=== PATIENT | male | born 1955 | race Hispanic/Latino ===

== ENCOUNTER 2019-09-22 09:37 | Observation (INO) | payer BC, OTHER ==
--- OUTSIDE RECORDS SUMMARY | 2019-09-22 10:19 | XMS REPORT | Encounter Summary ---
:1955 Author Care Team Providers Name Role Phone Buddy Zapien MD Internet Marketing Assistant [phone] Reason for Visit lab follow-up Instructions 1. Hemoglobin A1c between 7%-10% indicating borderline diabetic control glipizide 5 mg tablet Tresiba FlexTouch U-100 insulin 100 unit/mL (3 mL) subcutaneous pen 2. Mixed hyperlipidemia omega-3 acid ethyl esters 1 gram capsule 3. Neck pain neck pain: care instructions cyclobenzaprine 10 mg tablet Discussion Note: None recorded. Plan of Care Reminders Provider Appointments None recorded. Lab None recorded. Referral None recorded. Procedures None recorded. Surgeries None recorded. Imaging None recorded. Medications Name Start Date acetaminophen 300 mg-codeine 30 mg tablet Take 1 tablet twice a day by oral route for 30 days. cyclobenzaprine 10 mg tablet Take 1 tablet 3 times a day by oral route as needed. duloxetine 60 mg capsule,delayed release Take 1 capsule every day by oral route for 90 days. Enbrel 50 mg/mL (1 mL) subcutaneous syringe Inject 1 mL every week by subcutaneous route. glipizide 5 mg tablet TAKE 1 TABLET BY MOUTH 3 TIMES A DAY Januvia 100 mg tablet Take 1 tablet every day by oral route. Levemir FlexTouch U-100 Insulin 100 unit/mL (3 mL) subcutaneous pen Inject 65 units every day by subcutaneous route. lisinopril 10 mg tablet TAKE 1 TABLET BY MOUTH ONCE A DAY lovastatin 20 mg tablet Take 1 tablet(s) every day by oral route. methotrexate sodium 2.5 mg tablet Take 7 tablets every week by oral route for 84 days. omega-3 acid ethyl esters 1 gram capsule Take 1 capsule twice a day by oral route. Medications Administered None recorded. Vitals Height Weight BMI Blood Pressure 5 ft 5 in 178.6 lbs 29.7 kg/m2 132/70 mm[Hg] Results Lab Results Date Name Specimen Result Interpretation Description Value Range Status Address 11/18/2018 Electrocardiogram Rate & Rhythm 63 [facility] Medical: [facility] [address], [place] Interval 151 [facility]: [address], [place] QRS Duration 76 [facility]: [address], [place] QT Interval 394 [facility]: [address], [place] Lipid Panel, Serum Normal Cholesterol, 182 <200 [facility] Total mg/dL mg/dL [facility] - [place] Lab: [address], [place] Normal HDL 42 >40 [facility] Cholesterol mg/dL mg/dL [facility] - [place] Lab: [address], [place] High Triglycerides 337 <150 [facility] mg/dL mg/dL [facility] - [place] Lab: [address], [place] Normal LDL-cholester 95 [facility] ol mg/dL Diagnostics (calc) - [place] Lab: [address], [place] Normal Chol/hdlc 4.3 <5.0 [facility] Ratio (calc) (calc) [facility] - [place] Lab: [address], [place] High Non HDL 140 <130 [facility] Cholesterol mg/dL mg/dL Diagnostics (calc) (calc) - [place] Lab: [address], [place] CMP, Serum or High Glucose 220 65-99 [facility] Plasma mg/dL mg/dL [facility] - [place] Lab: [address], [place] Normal Urea Nitrogen 19 7-25 [facility] (BUN) mg/dL mg/dL [facility] - [place] Lab: [address], [place] High Creatinine 1.30 0.70-1 [facility] mg/dL .25 [facility]ostics mg/dL - [place] [facility]: [address], [place] Low eGFR Non-afr. 58 > [facility] Indonesian mL/min/ or=60 Diagnostics 1.73m2 mL/min - [place] /1.73m Lab: [address], [place] Normal eGFR 68 > [facility] Indonesian mL/min/ or=60 [facility] 1.73m2 mL/min - [place] /1.73m Lab: [address], [place] Normal BUN/creatinin 15 6-22 [facility] e Ratio (calc) (calc) [facility] - [place] Lab: [address], [place] Normal Sodium 135 135-14 [facility] mmol/L 6 Diagnostics mmol/L - [place] Lab: [address], [place] Normal Potassium 4.8 3.5-5. [facility] mmol/L 3 Diagnostics mmol/L - [place] Lab: [address] [facility], [place] Normal Chloride 101 98-110 [facility] mmol/L mmol/L Diagnostics [facility] Lab: [address] [facility], [place] Normal Carbon 26 20-32 [facility] Dioxide mmol/L mmol/L Diagnostics [facility] Lab: [address] [place] [address], [place] Normal Calcium 9.6 8.6-10 [facility] mg/dL .3 Diagnostics mg/dL - [place] Lab: [address] [place] [address], [place] Normal Protein, 7.2 6.1-8. [facility] Total g/dL 1 g/dL [facility] - [place] Lab: [address] [place] [address], [place] Normal Albumin 4.3 3.6-5. [facility] g/dL 1 g/dL Diagnostics [facility] Lab: [address] [place] [address], [place] Normal Globulin 2.9 1.9-3. [facility] g/dL 7 g/dL Diagnostics (calc) (calc) - [place] Lab: [address] [place] [address], [place] Normal Albumin/globu 1.5 1.0-2. [facility] preston Ratio (calc) 5 Diagnostics (calc) - [place] Lab: [address] [place] [address], [place] Normal Bilirubin, 0.4 0.2-1. [facility] Total mg/dL 2 Diagnostics mg/dL - [place] Lab: [address] [place] [address], [place] Normal Alkaline 61 U/L 40-115 [facility] Phosphatase U/L Diagnostics [facility] Lab: [address] [place] [address], [place] Normal Ast 14 U/L 10-35 [facility] U/L Diagnostics [facility] Lab: [address] [place] [address], [place] Normal Alt 31 U/L 9-46 [facility] U/L Diagnostics [facility] Lab: [address] [place] [address], [place] CBC W/ Auto Diff Normal White Blood 5.8 3.8-10 [facility] Cell Count thousan .8 Diagnostics d/uL thousa [facility] nd/uL Lab: [address] [place] [address], [place] Normal Red Blood 4.30 4.20-5 [facility] Cell Count million .80 Diagnostics /uL millio [facility] n/uL Lab: [address] [place] [address], [place] Normal Hemoglobin 14.0 13.2-1 [facility] g/dL 7.1 Diagnostics g/dL - [place] Lab: [address], [place] Normal Hematocrit 40.9 % 38.5-5 [facility] 0.0 % Diagnostics [facility] Lab: [address] [facility], [place] Normal Mcv 95.1 fL 80.0-1 [facility] 00.0 Diagnostics fL [facility] Lab: [address] [facility], [place] Normal Mch 32.6 pg 27.0-3 [facility] 3.0 pg Diagnostics [facility] Lab: [address] [facility], [place] Normal Mchc 34.2 32.0-3 [facility] g/dL 6.0 Diagnostics g/dL [facility] Lab: [address] [facility], [place] Normal Rdw 13.3 % 11.0-1 [facility] 5.0 % Diagnostics [facility] Lab: [address] [facility], [place] Normal Platelet 197 140-40 [facility] Count thousan 0 Diagnostics d/uL thousa [facility] nd/uL Lab: [address] [facility], [place] Normal Mpv 10.4 fL 7.5-12 [facility] .5 fL Diagnostics [facility] Lab: [address] [facility], [place] Normal Absolute 3242 1500-7 [facility] Neutrophils cells/u 800 Diagnostics L cells/ - [place] uL Lab: [address] [facility], [place] Normal Absolute 1665 850-39 [facility] Lymphocytes cells/u 00 Diagnostics L cells/ - [place] uL Lab: [address] [facility], [place] Normal Absolute 661 200-95 [facility] Monocytes cells/u 0 Diagnostics L cells/ - [place] uL Lab: [address] [facility], [place] Normal Absolute 191 15-500 [facility] Eosinophils cells/u cells/ Diagnostics L uL [facility] Lab: [address] [facility], [place] Normal Absolute 41 0-200 [facility] Basophils cells/u cells/ Diagnostics L uL - [place] Lab: [address] [facility], [place] Normal Neutrophils 55.9 % [facility]ostics [facility] Lab: [address] [facility], [place] Normal Lymphocytes 28.7 % [facility] Lab: [address] [facility], [place] Normal Monocytes 11.4 % [facility] Diagnostics [facility] Lab: [address] [facility], [place] Normal Eosinophils 3.3 % [facility] Lab: [address] [facility], [place] Normal Basophils 0.7 % [facility] Lab: [address] [facility], [place] T4, Free, Serum Normal T4, Free 1.1 0.8-1. [facility] NG/dL 8 Diagnostics NG/dL - [place] Lab: [address] [facility], [place] TSH, Serum or Normal Tsh 0.67 0.40-4 [facility] Plasma mIU/L .50 Diagnostics mIU/L - [place] Lab: [address], [place] Vitamin D, Normal Vitamin 31 30-100 [facility] 25-Hydroxy, Total, D,25-Oh,total, NG/mL NG/mL Diagnostics Serum ia - [place] Lab: [address] [facility], [place] HbA1C (Hemoglobin High Hemoglobin 7.8 % <5.7 % [facility] a1C), Blood a1C of of Diagnostics total total - [place] HGB HGB Lab: [address] [place] [address], [place] Glucose, Blood 240 [facility] Fingerstick, Blood Glucose: mg/dl Medical: [address] [facility] [address], [place] Glucose, Blood 223 [facility] Fingerstick, Blood Glucose: mg/dl Medical: [address] [facility] 1, [place] Allergies Code Code System Name Reaction Severity Status Onset 647554 RxNorm Lyrica Chest Pain Active 5 Respiratory Severe Active Distress 704 RxNorm Amitriptyline Active 6809 RxNorm Metformin Diarrhea Active 310040 RxNorm Neurontin Active 51940 RxNorm Trazodone Active Problems Name Status Onset Date Source Diabetes Mellitus Active 05/07/2018 Hyperlipidemia Active 05/07/2018 Depressive Disorder Active 05/07/2018 Rheumatoid Arthritis Active 05/07/2018 History of Depression Active 11/18/2018 Obesity Active Procedures Date Name Performed by 08/12/2015 Colonoscopy Information not available Orthopedic Surgery Information not available Hernia Repair Information not available 11/18/2018 Electrocardiogram [facility] [address] [place] [address] (Work Place) Vaccine List Vaccine Type Influenza, injectable, MDCK, preservative free, quadrivalent 05/07/20180.5 mL pneumococcal polysaccharide PPV23 06/09/2013 Tdap 05/07/2018 Social History Tobacco Smoking Status Former Smoker Past Encounters 03/03/2019 Diabetes Mellitus Steffi Aguilar, CHOIR SINGER: [address], [place] [address], Ph. [phone] 12/02/2018 Hemoglobin a1C between 7%-10% Indicating Borderline Diabetic Control; Mixed Hyperlipidemia; Neck Pain Steffi Aguilar, CHOIR SINGER: [address], [address], [place] [address], Ph. 11/18/2018 Hemoglobin a1C between 7%-10% Indicating Borderline Diabetic Control; Malaise and Fatigue; Mixed Anxiety and Depressive Disorder; Rheumatoid Arthritis; Mixed Hyperlipidemia; Neck Pain Steffi Aguilar, CHOIR SINGER: [address], [address], [place] [address], Ph. History of Present Illness Diabetes F/U Reported By: Patient HPI: Review finger sticks: fastin. Labs: last A1C result: 7.8. Context: normal range of home blood sugars (in the low 100s), seeing eye doctor regularly, checking feet regularly. Associated Symptoms: no weight gain, no weight loss, no dizziness, no sweats, no headaches, no confusion, no increased thirst, no increased appetite, no increased urination, no blurred vision, no numbness of feet, no calluses on feet Note: <p>Pt is here to f/u on labs. Neck pain has went away, but when he moves his left arm a certain way his arm gets numb. lg</p><p>pt has hx of type ii dm, htn, hyperlipidemia and RA. he is followed by dr zapien. he had recent labs done. his hba1c was 7.8 and is now 7.8. bun is 19 and creat is 1.30 , eGFR is 58. he reports feels like knots over left posterior shoulder. has benefits from using the flexeril. reports he has had previous neck surgery, fusion of C4- C5 in past. </p> Review of Systems Diabetes F/U ROS Reported By: Patient Cardiovascular:: Cardiovascular: no SOB, no palpitations, no intermittent claudication Gastrointestinal: Gastrointestinal: no nausea, no vomiting, no constipation, no diarrhea Neurological: Neurological: no numbness, no burning, no dizziness Extremities: Extremities: no edema, no ulcers Exercises: Exercises: ; no formal exercise Diet: Diet: following diet Constitutional: Constitutional: no fever, no night sweats, no significant weight gain, no significant weight loss, no exercise intolerance Endocrine: Endocrine: no fatigue Physical Exam General Adult Exam, Diabetes Reported By: Patient Constitutional: General Appearance: healthy-appearing, well-nourished, well-developed, no signs of discomfort, no pain, not difficult to engage. Level of Distress: no acute distress Psychiatric: Insight: good judgement, good insight. Mental Status: active and alert, normal mood, normal affect, no diffuse anxiety, no paranoid ideations. Orientation: to time, to place, to person. Memory: recent memory normal, remote memory normal Lungs: Auscultation: breath sounds normal, good air movement, CTA except as noted, no wheezing, no rales/crackles, no rhonchi Cardiovascular: Apical Impulse: not displaced. Heart Auscultation: RRR, normal S1, normal S2, no murmurs, no rubs, no gallops. Pulses including femoral / pedal: dorsalis pedis normal, posterior tibialis normal Abdomen: Bowel Sounds: no abdominal bruit. Inspection and Palpation: soft, non-distended Musculoskeletal:: Joints, Bones, and Muscles: no contractures, no bony abnormalities, no malalignment; normal alignment of c spine. no kyphosis or lordosis. he has good ROM to exteme left and right as well as flexion and extension. he has some tension noted left supra spinatus tendon posteriorly. Extremities: no cyanosis, no edema, no varicosities, no palpable cord, no ulcers Extremities: Skin: no dry or cracked skin, no bunion
--- OUTSIDE RECORDS SUMMARY | 2019-09-22 10:19 | XMS REPORT | Encounter Summary ---
:1955 Author Care Team Providers Name Role Phone Buddy Mcbride MD Last Puller [phone] Reason for Visit medication refill Instructions 1. Renewal of prescription 2. Influenza vaccination influenza (flu) vaccine: care instructions Flulaval Quad (PF) 60 mcg (15 mcg x 4)/0.5 mL IM syringe 3. Type 2 diabetes mellitus without complication Januvia 100 mg tablet type 2 diabetes: care instructions Discussion Note: None recorded. Plan of Care Reminders Provider Appointments Est Pt 10/08/2019 Mulu Christina 2:45PM JEM Aguilar Est Pt on or around Steffi Vasquez 10/08/2019 JEM Aguilar Lab None recorded. Referral None recorded. Procedures [...] TIMES A DAY Januvia 100 mg tablet TAKE 1 TABLET(S) EVERY DAY BY ORAL ROUTE. Levemir FlexTouch U-100 Insulin 100 unit/mL (3 [...] BMI Blood Pressure 5 ft 5 in 174 lbs 29 kg/m2 (1) 150/80 mm[Hg] (2) 138/74 mm[Hg] Results Lab Results None recorded. Allergies Code Code System Name Reaction Severity Status Onset 497870 RxNorm Lyrica Chest Pain Active 5 Respiratory Severe Active Distress 704 RxNorm Amitriptyline Active 6809 RxNorm Metformin Diarrhea Active 284306 RxNorm Neurontin Active 83236 RxNorm Trazodone Active Problems Name Status Onset Date Source Diabetes Mellitus Active 05/07/2018 Hyperlipidemia Active 05/07/2018 Depressive Disorder Active 05/07/2018 Rheumatoid Arthritis Active 05/07/2018 History of Depression Active 11/18/2018 Obesity Active Procedures Date Name Performed by 08/12/2015 Colonoscopy Information not available Orthopedic Surgery Information not available Hernia Repair Information not available Vaccine List Vaccine Type Influenza, injectable, MDCK, preservative free, quadrivalent 05/07/20180.5 mL influenza, injectable, quadrivalent, preservative free 07/08/20190.5 mL pneumococcal polysaccharide PPV23 06/09/2013 Tdap 05/07/2018 Social History Tobacco Smoking Status Former Smoker Past Encounters 07/08/2019 Renewal of Prescription; Influenza Vaccination; Type 2 Diabetes Mellitus without Complication Steffi Aguilar, SUPPLY CHAIN TECH: [address], [address], [place] [address], Ph. [phone] History of Present Illness Diabetes F/U Reported By: Patient HPI: Labs: last A1C result: 7.8; on 11/19/18. Context: normal range of home blood sugars (in the low 100s), seeing eye doctor regularly, checking feet regularly. Associated Symptoms: no weight gain, no dizziness, no sweats, no headaches, no confusion, no increased thirst, no increased appetite, no increased urination, no blurred vision, no numbness of feet, no calluses on feet, weight loss (6 lbs) Note: <p>Pt is her for med refill. Pt states he has changed his diet and has been exercising to help control bs. Pt has lost 6 pounds since his last visit. lg</p><p>pt has hx of type iidm and hyperlipidemia. his last hba1c was 7.8 on 11/19/18. he is requesting refill on januvia. </p> Review of Systems Diabetes F/U ROS [...] soft, non-distended Musculoskeletal:: Joints, Bones, and Muscles: normal movement of all extremities, no contractures, no bony abnormalities, no malalignment. Extremities: no cyanosis, no edema, no varicosities, no palpable cord, no ulcers Neurologic: Gait and Station: normal gait, normal station. Sensation: monofilament normal on the right, monofilament normal on the left Extremities: Skin: no dry or cracked skin, no bunion
[2019-09-22] MEDS ORDERED: NACHLORIDE 0.45% 1,000 ML IV SCH (11:00)
[2019-09-22] MEDS ORDERED: LOPERAMIDE HCL 2 MG CAPSULE PO PRN (11:00)
[2019-09-22] MEDS ORDERED: ACETAMINOPHEN 325 MG TABLET PO PRN (11:00)
[2019-09-22] MEDS ORDERED: DIPHENHYDRAMINE 25 MG TAB/CAP PO PRN (11:00)
[2019-09-22] MEDS ORDERED: POLYETHYL GLY 3350 17 GM/DOSE PO PRN (11:00)
[2019-09-22] MEDS ORDERED: ONDANSETRON 4 MG/2 ML VIAL IV PRN (11:00)
[2019-09-22] MEDS ORDERED: ONDANSETRON 4 MG (ODT) TAB PO PRN (11:00)
[2019-09-22 11:04] VITALS: BMI 29.9
[2019-09-22 11:14] LABS: Absolute Lymphocytes (CBC) 1.5 K/uL (0.7-4.9); Basophils % 0.6 % (0-1.3); Hematocrit 42.6 % (39.6-49.0); MPV 8.7 fL (7.6-11.3)
[2019-09-22 11:22] LABS: Protime INR 0.9
[2019-09-22] MEDS ORDERED: GLUCAGON 1 MG/VIAL IM PRN (11:32)
[2019-09-22] MEDS ORDERED: D50W 25 GM/50 ML SYRINGE/VIAL IV PRN (11:32)
[2019-09-22 11:53] LABS: Urine Appearance CLEAR; Urine Bilirubin NEGATIVE (NEG); Urine Blood NEGATIVE (NEG); Urine Color YELLOW; Urine Glucose NEGATIVE (NEG); Urine Protein NEGATIVE (NEG); Urine Specific Gravity <=1.005 (1.005-1.030); Urine Urobilinogen 0.2 mg/dL (0.2-1.0)
[2019-09-22 11:56] LABS: Albumin 3.7 g/dL (3.4-5.0); Bilirubin Direct 0.1 mg/dL (0-0.2); Bilirubin Total 0.5 mg/dL (0.2-1.0); Magnesium 2.2 mg/dL (1.8-2.4); Phosphorus 2.6 mg/dL (2.5-4.9); Protein, Total 7.4 g/dL (6.4-8.2); Thyroid Stimulating Hormone 0.596 uIU/mL (0.360-3.740)
[2019-09-22 11:56] LABS: Urine Microscopic Reflex NO UMIC
[2019-09-22] MEDS: ENOXAPARIN 40 MG/0.4 ML SQ SCH (12:02)
[2019-09-22] MEDS: CLOPIDOGREL 75 MG TABLET PO SCH (12:02)
[2019-09-22 12:13] LABS: UR MICROALBUMIN 1.8 mg/dL (< 1.9)
[2019-09-22] MEDS: INSULIN -REGULAR HUMAN 50 UNIT/0.5 ML ML SQ SCH ×2 (16:30→21:29)
[2019-09-22] MEDS ORDERED: METHOTREXATE SODIUM PO SCH (17:15)
[2019-09-22] MEDS ORDERED: ETANERCEPT 50 MG SQ SCH (17:15)
[2019-09-22] MEDS ORDERED: HOME MED 1 EA UNK (Dulaglutide [Trulicity] 1.5 MG) SQ SCH (17:15)
--- NOTE | 2019-09-22 18:44 | EKG ---
Test Date: 2019-09-22 Test Time: 13:39:04 Client Reporting Associate: SIMON MEASUREMENT RESULTS: Intervals: Rate: 74 IA: 144 QRSD: 74 QT: 382 QTc: 424 [place]: P: 46 IA: 144 QRS: 47 T: 80 INTERPRETIVE STATEMENTS: Normal sinus rhythm Nonspecific T wave abnormality Abnormal ECG Compared to ECG 06/06/2006 12:49:05 T-wave abnormality now present Sinus bradycardia no longer present Electronically Signed On 09-22-19 18:44:06 BASE ENGINEER by Bernardo Angel
--- NOTE | 2019-09-22 20:05 | RAD REPORT ---
EXAM DESCRIPTION: Karin Verma (2 Views)09/22/2019 7:58 pm CLINICAL HISTORY: Ataxia/CVA COMPARISON: None FINDINGS: The lungs appear clear of acute infiltrate. The heart is normal size IMPRESSION: No acute abnormalities displayed
[2019-09-22] MEDS ORDERED: INSULIN GLARGINE HUM REC ANLOG 70 UNIT SQ SCH (21:00)
--- NOTE | 2019-09-22 21:05 | RAD REPORT ---
EXAM DESCRIPTION: MRI - MRA Neck W/Wo Cont - 09/22/2019 8:33 pm CLINICAL HISTORY: ataxia COMPARISON: None. TECHNIQUE: Magnetic resonance angiogram of the neck was performed. 20 cc MultiHance was administered intravenously. 3D MIPS reconstruction performed FINDINGS: The common carotid, internal carotid and external carotid arteries do not demonstrate a si gnificant stenosis. An aneurysm is not seen. The vertebral arteries are codominant without visualization of an abnormality. IMPRESSION: Unremarkable MRA neck NASCET criteria used. Mild 0-49% stenosis Moderate 50-69% stenosis Severe 70-99% stenosis
--- NOTE | 2019-09-22 21:05 | RAD REPORT ---
EXAM DESCRIPTION: MRI - Brain W/Wo Cont - 09/22/2019 8:33 pm CLINICAL HISTORY: ataxia COMPARISON: none TECHNIQUE: Axial, sagittal, and coronal magnetic images of the brain were obtained. 20 cc MultiHance administered intravenously FINDINGS: Mild to moderate signal within periventricular, deep and subcortical white matter probably ischemic changes secondary to small vessel disease A 22 millimeter mass is present within the left midbrain extending into the left thalamus. It contain s areas of intermediate and high signal on T1 weighted sequences. It contains mostly low signal on T2 weighted sequences. There does not appear to be significant enhancement. Diffusion-weighted/ ADC mapping sequences do not demonstrate evidence of an acute infarction. An extra-axial fluid collection is not noted. A 5 centimeter mass is present within the posterior musculature of the upper neck. It has high signal on T2 weighted sequences. 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 Areas of increased signal on T1 weighted sequences may indicate small a mount of blood 5 centimeter soft tissue mass posterior musculature upper neck Exam was discussed with Dr Brice
--- NOTE | 2019-09-22 21:07 | RAD REPORT ---
EXAM DESCRIPTION: MRI - MRA Head Wo Cont - 09/22/2019 8:33 pm CLINICAL HISTORY: ataxia COMPARISON: None. TECHNIQUE: Magnetic resonance angiogram was performed. 3D MIPS reconstruction performed FINDINGS: The anterior cerebral, middle cerebral, posterior cerebral, distal internal carotid and ba silar arteries do not demonstrate a significant stenosis. An aneurysm is not displayed. Arterial vessels are not seen supplying the 22 millimeter left midbrain/thalamus mass described on th e MRI brain. Increased signal within the mass likely shine through artifact IMPRESSION: Unremarkable MRA brain.
[2019-09-22] MEDS: CODEINE 30MG/APAP 300MG TAB PO PRN (22:27)
[2019-09-23 00:19] VITALS: O2SAT 94
[2019-09-23 04:24] LABS: Absolute Lymphocytes (CBC) 1.4 K/uL (0.7-4.9); Basophils % 0.4 % (0-1.3); Hematocrit 43.1 % (39.6-49.0); Lymphocytes % 17.9 % (15.3-44.8); MPV 8.9 fL (7.6-11.3); RBC Red Blood Cell Count 4.59 M/uL (4.33-5.43)
[2019-09-23 04:30] LABS: Potassium 3.8 mmol/L (3.5-5.1)
[2019-09-23] MEDS ORDERED: POTASSIUM CL SA 10 MEQ TAB PO ONE (06:00)
[2019-09-23] MEDS: INSULIN -REGULAR HUMAN 50 UNIT/0.5 ML ML SQ SCH (07:30)
[2019-09-23 08:15] VITALS: BP 147/78; TEMP 97.3
[2019-09-23] MEDS: ENOXAPARIN 40 MG/0.4 ML SQ SCH (08:56)
[2019-09-23] MEDS: CLOPIDOGREL 75 MG TABLET PO SCH (08:56)
[2019-09-23] MEDS ORDERED: HOME MED 1 EA UNK (Lovastatin [Lovastatin] 20 MG) PO SCH (09:00)
[2019-09-23] MEDS: CODEINE 30MG/APAP 300MG TAB PO PRN (09:15)
--- NOTE | 2019-09-23 22:00 | P.DS ---
Admission Date: 09/22/19 Discharge Date: 09/23/19 Disposition: ROUTINE DISCHARGE Discharge Condition: GOOD Hospital Course: MR MEGHANA HAS RA, VOCAL CORD HPV INFECTION, CHRONIC HOARSENESS, DIABETES MELITUS. HE COMES TO OFFICE WITH A WEEK OF ATAXIA, FAMILY SAYS HE RAN INTO THINGS AND SPILLED COFFEE ALSO. I EXAMINED HIM AND FOUND THAT HE HAD GAIT ATAXIA , DIZZINES AND NAUSEA. 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 I CALLED DR. ARON BRUNSON AND TALKED TO HIM. HE SUGGESTED THAT THESE SHOW SOME BLOOD AROUND USUALLY AND HE WILL SEE HIM NEXT WEEK. HE SAID HE WILL CALL THE PATIENT. I SENT HIM THE NAME AND PHONE OF HE PATIENT. PATIENT ALSO HAS UPPER NECK MASS THAT IS 4 CM. HIS TOLD ME THAT THEY WERE TOLD OF THAT BEFORE BUT I ASKED HIM TO FU WITH DR. MARIN SHE HAS SEEN HIM BEFORE FOR VOCAL CORD ISSUES. Vital Signs/Physical Exam: Temp Pulse Resp BP Pulse Ox 97.3 F 80 16 147/78 H 94 09/23/19 08:00 09/23/19 08:00 09/23/19 09:15 09/23/19 08:00 09/23/19 09:15 Laboratory Data at Discharge: WBC 8.0 K/uL (4.3-10.9) D 09/23/19 03:28 Hgb 14.7 g/dL (13.6-17.9) 09/23/19 03:28 Hct 43.1 % (39.6-49.0) 09/23/19 03:28 Plt Count 200 K/uL (152-406) 09/23/19 03:28 PT 10.7 SECONDS (9.5-12.5) 09/22/19 11:05 INR 0.90 09/22/19 11:05 APTT 29.7 SECONDS (24.3-36.9) 09/22/19 11:05 Sodium 141 mmol/L (136-145) 09/23/19 03:28 Potassium 3.8 mmol/L (3.5-5.1) 09/23/19 03:28 BUN 17 mg/dL (7-18) 09/23/19 03:28 Creatinine 1.35 mg/dL (0.55-1.3) H 09/23/19 03:28 Glucose 75 mg/dL (74-106) 09/23/19 03:28 Phosphorus 2.6 mg/dL (2.5-4.9) 09/22/19 11:05 Magnesium 2.0 mg/dL (1.8-2.4) 09/23/19 03:28 Total Bilirubin 0.5 mg/dL (0.2-1.0) 09/22/19 11:05 AST 18 U/L (15-37) 09/22/19 11:05 ALT 49 U/L (12-78) 09/22/19 11:05 Alkaline Phosphatase 62 U/L (45-117) 09/22/19 11:05 Home Medications: Dulaglutide [Trulicity] 1.5 mg SQ Q7D 09/22/19 Etanercept [Enbrel Sureclick] 50 mg SQ Q7D 09/22/19 Insulin Glargine,Hum.rec.anlog [Toujeo Solostar] 70 units SQ BID 09/22/19 Lovastatin 20 mg PO DAILY 09/22/19 Methotrexate Sodium [Methotrexate] 17.5 mg PO Q7D 09/22/19 glipiZIDE [Glipizide] 5 mg PO TID 09/22/19 lisinopriL [Lisinopril] 10 mg PO DAILY 09/22/19 Patient Discharge Instructions: DO NOT TAKE ASPIRIN, PLAVIX, ALEVE, IBUPROFEN OR ANY OTHER BLOOD THINNERS. MAKE APT THIS WEEK TO OFFICE SO WE CAN GET YOU TAKEN CARE WITH NEUROSURGEON. Followup: Job Brice MD [Primary Care Provider] - (call to schedule appointment)
== END 2019-09-23 10:09 | disposition home or self-care (01) ==
LOC: 4TH 10:16
PROVIDERS: ADMIT Internal Medicine; ATTEND Internal Medicine
DX: D18.02 Hemangioma of intracranial structures (principal); E11.9 Type 2 diabetes mellitus without complications; R49.0 Dysphonia; R27.0 Ataxia, unspecified; I10 Essential (primary) hypertension; A63.0 Anogenital (venereal) warts; Z85.528 Personal history of other malignant neoplasm of kidney
CPT/HCPCS: 93005; 85025 ×2; 80048 ×2; 36415 ×2; 83735 ×2; 84100; 85610; 82947 ×4; 80076; 85730; 84443; 81003; 83036; 82570; 82607; 82306; 82043; 71046; 70553; 70544; 70549; A9577; G0379; J1650; J2405; G0378 ×3